=== PATIENT | female | born 1945 | race Caucasian/White ===

== ENCOUNTER 2023-06-17 02:31 | Emergency (ER) | payer MEDICARE, MEDICAID, SELFPAY ==
[2023-06-17 02:48] VITALS: BP 156/73
[2023-06-17 03:00] VITALS: BP 156/84
[2023-06-17 03:30] LABS: % Basophils 0.2 % (0-2); % Immature Granulocytes 0.7 % (0-0.5); % Lymphocytes 10.7 % (20.5-51.1); % Monocytes 10.2 % (1.7-9.3); % Neutrophils 78.2 % (42.2-75.2); Absolute Lymphocytes 0.7 10^3/uL (1.2-3.4); Absolute Monocytes 0.6 10^3/uL (0.1-0.6); Absolute Neutrophils 4.7 10^3/uL (1.4-6.5); Hematocrit 32.6 % (37.0-47.0); Hemoglobin 11.8 g/dL (12.0-16.0); Mean Corp Hgb Conc. 36.2 g/dL (33.0-37.0); Mean Corpuscular Hgb 33.1 pg (27.0-31.0); Mean Corpuscular Volume 91.3 fL (81.0-99.0); Mean Platelet Volume 9.2 fL (7.4-10.4); Nucleated Red Blood Cells % 0 %; Platelet Count 142 10^3/uL (130-400); Red Blood Cell Count 3.57 10^6/uL (4.20-5.40); Red Cell Dist. Width 11.4 % (11.5-14.5); White Blood Cell Count 6.1 10^3/uL (4.8-10.8)
[2023-06-17 03:43] LABS: Blood Urea Nitrogen 23 mg/dl (7-17); Calcium 9.2 mg/dl (8.4-10.2); Carbon Dioxide 28 mmol/L (22-30); Chloride 95 mmol/L (98-107); Glucose 131 mg/dl (70-99); Potassium 4.1 mmol/L (3.5-5.1); Sodium 131 mmol/L (135-145); eGFR > 60.00
[2023-06-17 04:00] VITALS: BP 133/68
--- NOTE | 2023-06-17 04:36 | ED.GENMED ---
History of Present Illness
General
Chief Complaint: Weakness
Source: patient, ambulance crew and retirement (Telephone call to tail trimmer at senior care)
Exam Limitations: dementia (Chronic intellectual/cognitive disability)
Time Seen by Provider: 06/17/23 02:42
Nursing documentation reviewed up to this point in time: agreed with
Travel History
Have you had any contact with someone who has COVID-19?: Unable to Answer
Do you have any symptoms of coronavirus? Fever > 100 degrees, chills, cough, shortness of breath, sore throat, loss of taste or smell, muscle aches, or headache?: Yes
Symptoms:: fever
History of Present Illness
History of Present Illness:
This is a 77-year-old woman who resides at a local senior care. She has history of dementia, cognitive/intellectual delays, seizure disorder, hypertension, hyperlipidemia, UTIs.
She is sent to the ED by retirement staff after patient was found to have low-grade fever of 100.7 �F, mild intermittent dry cough. COVID-19 testing at 1:00 this morning was positive.
She was given a dose of Tylenol for fever at 12 midnight tonight.
Patient is generally wheelchair-bound but does assist with standing and pivoting to toilet etc. Tonight when staff attempted to get her up out of her wheelchair to use the toilet they had marked difficulty doing so where patient could not hold her
own weight. She did not fall, there was no injury. Due to this generalized weakness she was sent to the ED for further evaluation.
She has had no vomiting, no diarrhea.
Recently treated for an asymptomatic UTI noted on surveillance urinalysis, antibiotic completed several days ago.
Prior records reviewed.
Patient was hospitalized early November 2022 for UTI associated with fever, listlessness and poor appetite.
She was then hospitalized November 28 to December 01, 2022 after suffering a mechanical fall, scalp laceration and noted to have acute on chronic hyponatremia.
Past History
Past History
ED Past Medical History: Arrthythmia (Heart block type nonspecific), GERD, Psychiatric (depressive disorder, psychotic disorder), Other (MR, heart block) and Other (Mental disability, )
Social History
Tobacco: Non-smoker
Alcohol: None
Drug: None
Personal: Single
Living: assisted living
Family History
Family History: Unable to obtain
Phy Exam
Physical Exam
Physical Exam:
GENERAL: 77-year-old woman appears her stated age, bright and alert, pleasant, appears in no acute distress. Repeatedly requesting to go home. She is cooperative with exam.
EYE: pupils equal and reactive. anicteric
NECK: Supple, nontender, no meningismus, no significant adenopathy.
ENT: posterior pharynx is clear, oral mucosa is moist. TM clear b/l, nares patent.
CARDIAC: Regular rate and rhythm. no murmur.
LUNGS: Clear breath sounds bilaterally, no acute respiratory distress, no wheezes/rales/rhonchi
ABDOMEN: Soft, nondistended, without focal tenderness, normoactive BS.
NEUROLOGICAL: Alert and oriented x2, no focal neuro deficits. Motor strength is 5/5 bilaterally.
SKIN: Warm and dry, normal color, skin intact. No rash.
MUSCULOSKELETAL: No C/C/E. peripheral pulses are full and equal b/l. No palpable tenderness.
PSYCH: Normal and appropriate interaction.
Course
Orders/Labs/Results
Orders:
Orders
06/17/23 03:12
Basic Metabolic Panel Urgent
Complete Blood Count/With Diff Urgent
Abnormal Lab Results
06/17/23
03:12
RBC 3.57 L 10^6/uL
(4.20-5.40)
Hgb 11.8 L g/dL
(12.0-16.0)
Hct 32.6 L %
(37.0-47.0)
MCH 33.1 H pg
(27.0-31.0)
RDW 11.4 L %
(11.5-14.5)
Absolute Lymphs (auto) 0.7 L 10^3/uL
(1.2-3.4)
Immature Gran % 0.7 H %
(0-0.5)
Neutrophils % 78.2 H %
(42.2-75.2)
Lymphocytes % 10.7 L %
(20.5-51.1)
Monocytes % 10.2 H %
(1.7-9.3)
Sodium 131 L mmol/L
(135-145)
Chloride 95 L mmol/L
(98-107)
BUN 23 H mg/dl
(7-17)
Glucose 131 H mg/dl
(70-99)
06/17/23 03:12
06/17/23 03:12
Vital Signs
Initial and Last Documented VS:
Initial Vital Signs
Temp Pulse Resp BP Pulse Ox
100.3 F 72 16 156/73 93
06/17/23 02:48 06/17/23 02:48 06/17/23 02:48 06/17/23 02:48 06/17/23 02:48
Last Documented Vital Signs
Temp Pulse Resp BP Pulse Ox
98.8 F 65 15 115/81 94
06/17/23 05:00 06/17/23 05:00 06/17/23 05:00 06/17/23 05:00 06/17/23 05:00
MDM/Problems Addressed
Differential Diagnosis Includes:
Patient presents with low-grade fever, generalized weakness, recently tested positive for COVID-19.
Overall bright and alert, appears euvolemic.
Hemodynamically stable.
No focal neurodeficits.
Lungs are clear to auscultation and pulse ox is 95 to 97% on room air. No significant cough appreciated.
She does have history of hyponatremia thus will check BMP to assess for potential recurrent symptomatic hyponatremia.
At this point no indication for imaging.
I suspect her generalized weakness and fatigue is fever, COVID-19 infection related. Overall however nontoxic in appearance.
If labs are acceptable will plan to start Paxlovid for COVID-19 URI and discharged back to assisted living facility.
Chronic conditions affecting care: Psychiatric illness
*Pulse Oximetry
Patient hypoxic: no
*Critical Care Note
Total Time (30-74mins, 75-104mins- exclusive of procedures): Not Applicable
ED Attending Note
-
Portions of this chart may have been created with voice recognition software.� Occasional wrong word or��sound alike� substitutions may have occurred due to the inherent limitations of voice recognition software.
Discharge Plan
Departure
Patient Disposition: Assisted Living
Date of Disposition: 06/17/23
Time of Disposition: 04:36
Patient with high blood pressure during this ER visit?: No
Condition: Good
Covid-19: Confirmed COVID-19
Discharge Problem:
COVID-19
Instructions: COVID-19 (DC)
Prescriptions:
New
Paxlovid 300 mg (150 mg x 2)-100 mg tablets,dose pack
See Rx Instructions .ROUTE .COMPLEX Qty: 30 0RF
Rx Instructions:
take TWO 150 mg tablets of nirmatrelvir with ONE 100 mg tablet of ritonavir twice daily for 5 days
No Action
meloxicam 7.5 mg Tablet
7.5 mg PO DAILY
lorazepam 0.5 mg Tablet
0.5 mg PO HS
divalproex 500 mg Tablet Extended Release 24 Hr
500 mg PO HS
benztropine 1 mg Tablet
1 mg PO HS
docusate sodium [Colace] 100 mg Capsule
100 mg PO BID
omeprazole 20 mg Capsule,Delayed Release(Dr/Ec)
20 mg PO HS
Systane (PF) 0.4-0.3 % Dropperette
1 drp BOTH EYES TID
calcium carbonate-vitamin D3 [Calcium 600 + D(3)] 600 mg-10 mcg (400 unit) Tablet
1 tab PO DAILY@1999
polyethylene glycol 3350 [Miralax] 17 gram Powder In Packet
17 g PO DAILY PRN (Reason: constipation)
dextromethorphan-guaifenesin [Robafen DM Cough-Chest Congest] 10-100 mg/5 mL Syrup
5 ml PO Q4H PRN (Reason: cough)
acetaminophen [Tylenol] 325 mg Tablet
650 mg PO Q4H PRN (Reason: mild pain/fever)
risperidone [Risperdal] 2 mg Tablet
2 mg PO BID@0800,1600
cefuroxime axetil 500 mg tablet
500 mg PO BID Qty: 17 0RF
guar gum Packet
1 tbsp PO DAILY PRN (Reason: constipation)
sertraline 50 mg Tablet
50 mg PO DAILY@1999 Qty: 30 0RF
metoprolol tartrate 25 mg Tablet
25 mg PO BID Qty: 60 0RF
Referrals:
UNKNOWN - PT NOT,INTERVIEWE [Family Provider] -
Interventions
Interventions:
*Risk Screen - Suicide Last Done: 06/17/23 02:48
*General Assessment Last Done: 06/17/23 02:48
*Neglect/Abuse Screening Last Done: 06/17/23 02:48
ED- Fall Risk Assessment Last Done: 06/17/23 02:48
*ED COVID-19 Vaccine History Last Done: 06/17/23 02:48
*Nursing Disposition Last Done: 06/17/23 07:19
ED- Cardiac Assessment Last Done: 06/17/23 03:00
ED- Neurological Assessment Last Done: 06/17/23 03:00
ED- Pulmonary Assessment Last Done: 06/17/23 03:00
Discharge Date and Time
Discharge Date/Time: 06/17/23 07:23
[2023-06-17 05:00] VITALS: BP 115/81
== END 2023-06-17 07:23 ==
LOC: EMR 02:31
PROVIDERS: EMERGENCY PHYSICIAN Emergency Medicine
DX: U07.1 COVID-19 (principal); G40.909 Epilepsy, unspecified, not intractable, without status epilepticus; I45.9 Conduction disorder, unspecified; K21.9 Gastro-esophageal reflux disease without esophagitis; F32.A Depression, unspecified; F03.93 Unspecified dementia, unspecified severity, with mood disturbance; E78.5 Hyperlipidemia, unspecified; Z87.440 Personal history of urinary (tract) infections; Z99.3 Dependence on wheelchair
CPT/HCPCS: 99283; 80048; 85025

== ENCOUNTER → 2023-12-21 14:08 | Outpatient (REF) | payer MEDICARE, MEDICAID, SELFPAY | LOC: RAD 14:08 | PROVIDERS: ATTENDING PHYSICIAN Nurse Practitioner | DX: R10.9 Unspecified abdominal pain (principal) | CPT/HCPCS: 74177; Q9967 ==

== ENCOUNTER 2024-08-08 22:20 | Observation (INO) | payer MEDICARE, MEDICAID, SELFPAY ==
[2024-08-08 17:13] VITALS: BMI 25.5
[2024-08-08 17:14] VITALS: BP 164/87
[2024-08-08 17:37] LABS: % Basophils 0.1 % (0-2); % Eosinophils 2.2 % (0-6); % Immature Granulocytes 0.3 % (0-0.5); % Lymphocytes 31.6 % (20.5-51.1); % Monocytes 8.9 % (1.7-9.3); % Neutrophils 56.9 % (42.2-75.2); Absolute Eosinophils 0.2 10^3/uL (0-0.7); Absolute Lymphocytes 2.1 10^3/uL (1.2-3.4); Absolute Monocytes 0.6 10^3/uL (0.1-0.6); Absolute Neutrophils 3.8 10^3/uL (1.4-6.5); Hematocrit 37.8 % (37.0-47.0); Hemoglobin 13.2 g/dL (12.0-16.0); Mean Corp Hgb Conc. 34.9 g/dL (33.0-37.0); Mean Corpuscular Hgb 33.7 pg (27.0-31.0); Mean Corpuscular Volume 96.4 fL (81.0-99.0); Mean Platelet Volume 9.3 fL (7.4-10.4); Nucleated Red Blood Cells % 0 %; Platelet Count 163 10^3/uL (130-400); Red Blood Cell Count 3.92 10^6/uL (4.20-5.40); Red Cell Dist. Width 11.4 % (11.5-14.5); White Blood Cell Count 6.7 10^3/uL (4.8-10.8)
[2024-08-08 17:44] LABS: Urine Albumin 1+ (Neg - Trace); Urine Bilirubin Negative (Negative); Urine Character Clear (Clear); Urine Color Yellow; Urine Glucose Negative (Negative); Urine Ketone Negative (Negative); Urine Leukocyte Negative (Negative); Urine Nitrite Negative (Negative); Urine Occult Blood Negative (Negative); Urine Urobilinogen Negative (Neg - 1+)
[2024-08-08 17:58] LABS: ALT (SGPT) 11 U/L (0-35); AST (SGOT) 18 U/L (14-36); Alkaline Phosphatase 45 U/L (38-126); Blood Urea Nitrogen 33 mg/dl (7-17); Calcium 9.9 mg/dl (8.4-10.2); Carbon Dioxide 32 mmol/L (22-30); Chloride 96 mmol/L (98-107); Estimated Creatinine Clearance 40 ml/min; Glucose 112 mg/dl (70-99); Potassium 4.7 mmol/L (3.5-5.1); Sodium 135 mmol/L (135-145); Total Bilirubin 0.4 mg/dl (0.2-1.3); Total Protein 6.7 g/dl (6.3-8.2); Urine Mucus Moderate; Urine Squamous Cell 0-2 /LPF (Few); eGFR 56.95
[2024-08-08 17:59] LABS: Urine Bacteria Few (Negative); Urine Red Blood Cell 0-2 /HPF (0-2); Urine White Cell 0-2 /HPF (0-5)
--- NOTE | 2024-08-08 20:15 | ED.GENMED ---
History of Present Illness
General
Chief Complaint: Change in Mental Status
Source: other ([facility] paperwork)
Exam Limitations: other (Patient is unable to speak comprehensively due to tardive dyskinesia)
Time Seen by Provider: 08/08/24 17:36
Nursing documentation reviewed up to this point in time: agreed with
History of Present Illness
History of Present Illness:
The patient is an 79-year-old female the past medical history of cognitive dysfunction as well as schizophrenia who was sent from a longterm due to worsening of her tardive dyskinesia. According to the patient's paperwork, she has been more weak.
Patient was just diagnosed with a urinary tract infection and has been treated with Cipro. The patient is unable to provide any history. She has constant movement of her jaw and mouth. She appears slightly frustrated
Past History
Past History
ED Past Medical History: Arrthythmia (Heart block type nonspecific), GERD, Psychiatric (depressive disorder, psychotic disorder), Other (MR, heart block) and Other (Mental disability, )
ED Past Surgical History: Other
Social History
Tobacco: Non-smoker
Alcohol: None
Drug: None
Personal: Single
Living: other ([facility])
Employment: Other
Family History
Family History: Unable to obtain
Review of Systems
Review of Systems
Allergies reviewed?: Yes
Unable to obtain full review of systems at this time due to: other
Other source history: other ([facility] paperwork)
All Other Systems: Not applicable
Phy Exam
Physical Exam
Physical Exam:
Physical Exam
General: No apparent distress but patient has constant movement of her mouth and jaw
Neck: supple.
Heart: s1/s2 regular rate and rhythm, no murmur. equal radial pulses.
Lungs: no acute respiratory distress. clear bilaterally
Abdomen: normal bowel sounds. not tender. no CVAT
Neuro: alert. Moves all extremities equally. Appears alert, fully awake, tries to speak but speech sounds muffled
Skin: no rash
Psychiatric: well kept. interactive and cooperative
Extremities: no edema. no calf tenderness. negative homans. good distal pulses
Course
Orders/Labs/Results
Orders:
Orders
08/08/24 17:25
Complete Blood Count/With Diff Urgent
Comprehensive Metabolic Panel Urgent
Urinalysis Reflex To Culture Urgent
Date Specimen was Collected: 08/08/24
Time Specimen was Collected: 17:22
Urine Microscopic Reflex Cult Urgent
08/08/24 19:01
CT Abd/pel Without Iv Or Oral Urgent
Comment:
Reason For Exam: UTI
08/08/24 21:11
0.9% Sodium Chloride 1000 ml [Nss] 1,000 ml IV BOLUS
08/08/24 21:37
Admit/Transfer Patient As Directed
Co-Sign Provider:
Level of Care: Observation services
Assign to:: Medical/Surgical
Physician / Group: Htay
Diagnosis: UTI, Constipation
08/08/24 21:38
PRN Pain Medication Management As Directed
May give lesser potent ordered pain med per pt: Yes
preference::
Protocol:: Medication orders for pain may be administered in a
manner that supports deferring to patient preference
when the pt is:
- Requesting an ordered lesser potent pain medication.
Least to most potent pain medications are defined
as: acetaminophen < NSAID < tramadol < opioids
(morphine, oxycodone, hydromorphone).
- Requesting a lesser dose of the same medication IF
ORDERED.
- Requesting a less intrusive route of administration
if both routes are prescribed by the provider (PO <
IV).
08/08/24 21:41
Code Status As Directed
Resuscitation Status: Full Code
08/08/24 22:00
Flush (0.9% Sodium Chloride) [Flush (Nss)] See Dose Instructions IV PER PROTOCOL
Abnormal Lab Results
08/08/24
17:25
RBC 3.92 L 10^6/uL
(4.20-5.40)
MCH 33.7 H pg
(27.0-31.0)
RDW 11.4 L %
(11.5-14.5)
Chloride 96 L mmol/L
(98-107)
Carbon Dioxide 32 H mmol/L
(22-30)
BUN 33 H mg/dl
(7-17)
Glucose 112 H mg/dl
(70-99)
Urine Bacteria (Reflex) Few A
(Negative)
Urine Albumin (Reflex) 1+ A
(Neg - Trace)
08/08/24 17:25
08/08/24 17:25
Vital Signs
Initial and Last Documented VS:
Initial Vital Signs
Pulse Ox
96
08/08/24 17:07
Last Documented Vital Signs
Temp Pulse Resp BP Pulse Ox
98.1 F 65 16 164/87 94
08/08/24 17:14 08/08/24 17:14 08/08/24 17:14 08/08/24 17:14 08/08/24 17:15
MDM/Problems Addressed
Differential Diagnosis Includes:
Acute on chronic tardive dyskinesia from acute UTI, Singh's palsy
MDM/Problems Addressed:
Patient presents with acute on chronic tardive dyskinesia
Chronic conditions affecting care: Psychiatric illness
Acute Exacerbation and/or Progression of Chronic Illness:
Patient has acute exacerbation of chronic tardive dyskinesia
*Pulse Oximetry
Patient hypoxic: no
*EKG
Interpreted by ED Provider?: NA
*Resource Center Teacher Interpretation
Rate: Resource Center Teacher- N/A
*Critical Care Note
Total Time (30-74mins, 75-104mins- exclusive of procedures): Not Applicable
Data Reviewed
Source: other ([facility] paperwork)
Patient Management
Social determinants of health affecting care: Living situation
Discussion with other providers: Hospitalist and Other (Spoke to Dr. Bansal who felt that patient could benefit from a medication called Ingrezza. )
Escalation/DeEscalation of care consider admission/obs:
I called the [facility] longterm where the patient resides. The staff told me that they do not feel comfortable taking the patient back given that her tardive dyskinesia is so bad and she is not eating well. I asked to speak to the nurse
at the facility and she would not be available until tomorrow during daytime.
ED Attending Note
-
Portions of this chart may have been created with voice recognition software.� Occasional wrong word or��sound alike� substitutions may have occurred due to the inherent limitations of voice recognition software.
Discharge Plan
Departure
Patient Disposition: Admit
Date of Disposition: 08/08/24
Time of Disposition: 21:10
Admit to: Med/Surg
Presentation/result/management discussed w/ accepting MD/DO: Hospitalist
Patient with high blood pressure during this ER visit?: Yes
Condition: Good
Discharge Problem:
Acute dehydration, Acute on chronic tardive dyskinesia
Interventions
Interventions:
*Risk Screen - Suicide Last Done: 08/08/24 17:14
*General Assessment Last Done: 08/08/24 17:14
*Neglect/Abuse Screening Last Done: 08/08/24 17:14
*ED- Fall Risk Assessment Last Done: 08/08/24 17:14
*ED COVID-19 Vaccine History Last Done: 08/08/24 17:14
ED- Neurological Assessment Last Done: 08/08/24 21:56
--- NOTE | 2024-08-08 21:21 | HPS.HSE ---
Family Physician
-
Family Physician: Greer Allen
Chief Complaint
-
Worsening Tardive Dyskinesea
History of Present Illness
Patient is an 79 y/o female past medical history of psychotic disorder and intellectually disability who presents with worsening tardive dyskinesia. Patient is unable to provide any additional history. Patient was started on Cipro on August 04
for a urinary tract infection infection. Patient has been noted to have worsening tardive dyskinesia which is now affecting her ability to eat.
Medical History
Past Medical History
Past Medical History: Reports Other
Additional Past Medical History:
Chronic HFpEF
Non-Sustained Ventricular Tachycardia
SIADH
Seizure Disorder
Psychotic Disorder
Intellectual Disability
Dysphagia
Past Surgical History: Reports Other (Unknown)
Social History
Unable to obtain full social history at this time due to: Patient Non-verbal
Family History
Family History: Unable to Obtain
Allergies / Home Medications
Allergies reflects when Allergies were last updated in [facility].
Home Medications with original date entered in [facility]
Allergy/Medication List:
Allergies
Allergy/AdvReac Type Severity Reaction Status Date / Time
No Known Allergies Allergy Unverified 06/17/23 02:47
Home Medications
acetaminophen 325 mg tablet (Tylenol) 650 mg PO Q4HPRN PRN mild pain/fever 11/07/21
benztropine 1 mg tablet 1 mg PO BID Mental Health/Anxiety 11/07/21
calcium 600 mg (as carbonate)-vitamin D3 10 mcg (400 unit) tablet (Calcium 600 + D(3)) 1 tab PO QPM Supplement 11/07/21
dextromethorphan-guaifenesin 10 mg-100 mg/5 mL oral syrup (Robafen DM Cough-Chest Congestion) 5 ml PO Q4HPRN PRN cough 11/07/21
divalproex 500 mg tablet,extended release 24 hr 500 mg PO HS Mental Health/Anxiety 11/07/21
docusate sodium 100 mg capsule (Colace) 100 mg PO BID Constipation 11/07/21
lorazepam 0.5 mg tablet 0.5 mg PO HS Sleep 11/07/21
meloxicam 7.5 mg tablet 7.5 mg PO DAILY Anti-Inflammatory 11/07/21
omeprazole 20 mg capsule,delayed release 20 mg PO DAILY Gastrointestinal Issue 11/07/21
polyethylene glycol 3350 17 gram oral powder packet (Miralax) 17 g PO Q48H@1600 11/07/21
risperidone 2 mg tablet (Risperdal) 3 mg PO HS Mental Health/Anxiety 11/19/22
metoprolol tartrate 25 mg tablet 25 mg PO BID #60 tabs 11/29/22
ciprofloxacin HCl 250 mg tablet 250 mg PO BID 08/08/24
lidocaine 4 % topical patch 1 patch topical DAILY right lower leg 08/08/24
sertraline 50 mg tablet 100 mg PO HS 08/08/24
Review of Systems
-
Unable to obtain full review of systems at this time due to: Patient Non-verbal
Physical Exam
Vital Signs
Vital Signs
Temp Pulse Resp BP Pulse Ox
98.1 F 65 16 164/87 94
08/08/24 17:14 08/08/24 17:14 08/08/24 17:14 08/08/24 17:14 08/08/24 17:15
Physical Exam
General: Well Developed, Well Nourished and Other (Tearful)
HEENT: NormoCephalic and Anicteric
Respiratory: Clear and Non Labored Respirations
Cardiac: S1/S2 and Regular Rhythm
GI: Soft and Non Tender
Genito-urinary: Clear Urine
Musculoskeletal: No Clubbing and No Cyanosis
Skin: Warm and Dry
Neuro: Awake, Alert and Other (Significant tardive dyskinesia; Able to follow some commands)
Psych: Anxious
Laboratory Results
-
08/08/24 17:25
08/08/24 17:25
Laboratory Results
Total Bilirubin 0.4 mg/dl (0.2-1.3) 08/08/24 17:25
AST 18 U/L (14-36) 08/08/24 17:25
ALT 11 U/L (0-35) 08/08/24 17:25
Alkaline Phosphatase 45 U/L (38-126) 08/08/24 17:25
Data Reviewed
-
Lab Data: Labs Reviewed by me
Old Records: Reviewed
Impression/Plan
-
Worsening Tardive Dyskinesia, likely exacerbated by Cipro
-Stop Cipro
-Consult Psych
Urinary Tract Infection
-Urinalysis appears clean compared to prior, but CT scan still with evidence of cystitis
-Will attempt to obtain urine culture from PCP
-Transition to ceftriaxone
Constipation
-Give Dulcolax suppository tonight
-Add Senna-S BID
-Continue Miralax
SIADH
-Continue fluid restriction
Seizure Disorder
-Continue Depakote
Psychotic Disorder
-Continue Cogentin, lorazepam, risperidone and sertraline
Dysphagia
-Continue IDDSI 5 (Mechanical soft per custodial paperwork)
DVT proph: Lovenox
Code Status: Full Code
[2024-08-08] MEDS: NSS 1000 IV (21:29)
--- NOTE | 2024-08-08 21:47 | W.PN.UPDATE ---
Update Note
Progress Note Update
I could not get any information from the patient as signifcant developmental delay
Information gathered by chart review and speaking with the ER staff.
This note serves as an addendum to the H&P by global creative chairman JACKIE
Jolie MAYEN
HPI
79F WC Bound from senior care, HX schizophrenia , significant for developmental delay and mood disorder on multiple psychotropic medications, HX tardive dyskinesia , seen at ER:
- family concerned with increased tardive dyskinesia
- UTI ( 08/04/24 ) on D4 of PO Cipro
PHX; see above
Reviewed VS:
Vital Signs
Temp Pulse Resp BP Pulse Ox
98.1 F 65 16 164/87 94
08/08/24 17:14 08/08/24 17:14 08/08/24 17:14 08/08/24 17:14 08/08/24 17:15
PE
Gen: alert , follow simple commands
HEENT: involuntary lip smacking
Neck: supple
Lungs:CTA
Cor: RRR S1 S2
Abdomen: soft benign
MASTER BARBER: alert , awake
MS: no edema
Psych: limited due to development delay
Labs
06/17/23 08/08/24
03:12 17:25
WBC 6.7
Hgb 11.8 L 13.2
Plt Count 163
Sodium 135
Chloride 96 L
Carbon Dioxide 32 H
BUN 33 H
Creatinine 1.0
eGFR > 60.00 56.95
Urine WBC (Reflex) 0-2
CT Abd/pel Without Iv Or Oral
1. Moderate diffuse urinary bladder wall thickening consistent with cystitis.
2. Moderate chronic bilateral renal disease.
3. Moderate scarring in the lateral cortex of the left kidney.
4. Severe diverticulosis in the sigmoid colon.
5. Large amount of fecal material in the proximal colon and rectum.
6. Severe tortuosity of the abdominal aorta.
7. Moderate-sized sliding-type hiatal hernia.
8. Mild cardiomegaly.
9. Chronic vertebral body endplate osteoporotic insufficiency fractures of T12, L1, and L2.
10. Severe discogenic degenerative disease at L2/L3 and L4/L5.
Last hospitalist admission: DATE OF ADMISSION: 11/19/2022 - DATE OF DISCHARGE: 11/24/2022
DISCHARGE DIAGNOSES:
1. Escherichia coli bacteremia urinary tract infection with left pyelonephrititis.
2. Congestive heart failure with preserved ejection fraction.
ASSESSMENT & PLAN
CT suggestive of cystitis
Currently on D3/4 of PO Cipro
Current UA is NEG
Afebrile and nl WCC
HX Pyelonephritis E. coli pansensitive November 24, 2022
HX E. coli bacteremia November 24, 2022
- IV NS
- switch to IV CFTX
- Observe weakness and tardive dyskinesia
Worsening tardive dyskinesia - suspect multifactorial such as UTI, Cipro, hi Valproate level, fecal impaction
HX schizophrenia , significant for developmental delay and mood disorder on multiple psychotropic medications
HX tardive dyskinesia on Benztropine
WC Bound and 2 person lift at baseline
- check valproate level
- Observe off Cipro
- Tx UTI
- correct dehydration with IVF
- BW regime
- Observe TD
HX Chronic diastolic CHF
HX NSTVT
TTE 11/21/22: LVEF 60-65%, by visual assessment.Normal right ventricular size and function. Mild aortic regurgitation.
- on metoprolol tartrate
HX depression and psychosis
Lives in skilled nursing
- c/w Depakote and Zoloft
- check Depakote level
Nl LFts
HX abnormal LFTs
Prior CT abdomen showing partially contracted gallbladder liver was unremarkable
-Continue to follow as outpatient on discharge
Chronic anemia normocytic
- Monitor hemoglobin
DVT Px: LMWH
Code: full code
OBS MS
[2024-08-09 00:09] VITALS: BP 149/100
[2024-08-09 00:10] VITALS: BMI 23.1
[2024-08-09] MEDS: ATIVAN 0.5 MG PO ×2 (00:52→21:06)
[2024-08-09] MEDS: DEPAKOTE ER (24 HR RELEASE) 500 MG PO ×2 (00:52→21:05)
[2024-08-09] MEDS: RISPERDAL 3 MG PO (00:52)
[2024-08-09] MEDS: DULCOLAX 10 MG RECTAL (00:52)
[2024-08-09] MEDS: ROCEPHIN 1000 MG IV ×2 (00:52→23:48)
[2024-08-09] MEDS: ZOLOFT 100 MG PO ×2 (00:52→21:06)
[2024-08-09] MEDS: STERILE WATER FOR INJECTION 10 ML IV ×2 (00:53→23:48)
[2024-08-09 06:00] VITALS: BMI 22.9
[2024-08-09 06:28] LABS: Hematocrit 31.9 % (37.0-47.0); Mean Corp Hgb Conc. 34.5 g/dL (33.0-37.0); Mean Corpuscular Hgb 32.9 pg (27.0-31.0); Mean Corpuscular Volume 95.5 fL (81.0-99.0); Mean Platelet Volume 9.1 fL (7.4-10.4); Platelet Count 135 10^3/uL (130-400); Red Blood Cell Count 3.34 10^6/uL (4.20-5.40); Red Cell Dist. Width 11.2 % (11.5-14.5); White Blood Cell Count 6.8 10^3/uL (4.8-10.8)
[2024-08-09 06:50] LABS: Blood Urea Nitrogen 22 mg/dl (7-17); Carbon Dioxide 29 mmol/L (22-30); Chloride 102 mmol/L (98-107); Estimated Creatinine Clearance 62 ml/min; Glucose 102 mg/dl (70-99); Magnesium 1.9 mg/dl (1.6-2.3); Potassium 4.6 mmol/L (3.5-5.1); Sodium 139 mmol/L (135-145); eGFR > 60.00
[2024-08-09 07:00] VITALS: BP 111/68
[2024-08-09 07:21] VITALS: BMI 22.9
[2024-08-09 07:56] LABS: Depakane 38.6 ug/ml (50.0-120.0)
[2024-08-09] MEDS: MOBIC 7.5 MG PO (08:47)
[2024-08-09] MEDS: SENOKOT-S 2 TABLET PO ×2 (08:47→20:28)
[2024-08-09] MEDS: LIDOCAINE 4% PATCH 1 PATCH TOPICAL (08:47)
[2024-08-09] MEDS: PROTONIX 40 MG PO (08:48)
[2024-08-09] MEDS: LOPRESSOR 25 MG PO ×2 (08:48→20:28)
[2024-08-09] MEDS: COGENTIN 1 MG PO ×3 (08:48→21:04)
--- NOTE | 2024-08-09 09:46 | W.PN.HOSP.TC ---
Today's Communication/Plan
-
Assessment / Plan
Assessment / Plan
NAD, not verbalizing
Scleral Anicteric
MMM, drooling while she sleeps
No JVD
CTABL
RRR, S1/S2
Soft, NT, ND, BS+
Warm, Dry
AA, able to squeeze my finger however does not really follow commands to assess for pronator drift or leg drift
Calm
Tardive dyskinesia
Acute on chronic
It is believed that this was related to/recommended by ciprofloxacin
Ciprofloxacin has since been discontinued
Appears to be improving however did not see movements on initial admission
Psychiatry consulted
UTI
Follow-up urine culture
On Rocephin
SIADH
Continue fluid restriction
Seizure disorder
Continue Depakote
Psychotic disorder
Continue Cogentin lorazepam risperidone sertraline
Dysphagia
Continue IDDSI 5
Anticipated Discharge: 24 - 48 hours
Subjective/Interval History
-
Date of Service: August 09, 2024
Seen and examined. Was sleeping. I did wake her up. She does have some puckering/pursing vs bonbon sign
Objective Data
-
Labs:
Laboratory Results
08/09/24
06:10
WBC 6.8
Hgb 11.0 L
Hct 31.9 L
Plt Count 135
Sodium 139
Potassium 4.6
Chloride 102
Carbon Dioxide 29
BUN 22 H
Creatinine 0.7
Glucose 102 H
Calcium 9.0
Vital Signs:
Vital Signs
Temp Pulse Resp BP Pulse Ox
98.2 F 66 18 111/68 93
08/09/24 07:00 08/09/24 07:00 08/09/24 07:00 08/09/24 07:00 08/09/24 07:00
--- NOTE | 2024-08-09 10:13 | PTCARENOTE ---
Assumed care of pt from previous nurse. Pt in NAD, appears comfortable sleeping in bed. Verbally arousable and able to nod head appropriately. Call choi within reach, plan of care ongoing.
--- NOTE | 2024-08-09 10:27 | CON.MD ---
Consultation - Medical
-
patient seen chart reviewed. spoke with nursing. 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 the patient is an 79 year old woman w hx schizophrenia reportedly. current meds risperdal 3 mg q day cogentin one mg bid. depakote 500 mg q hs sertraline
100 mg q day. she was reportedly referred bc of bucco facial movements which were thought perhaps to be impairing her food intake. she was described as weak. the patient could give no hx, i called [facility] to talk to staff there. left two messages. i
finally reached a person and he said 'the nurses are not here on weekend' but he would try to get in touch with someone. the patient is oriented to person and 'hospital'
past psych hx reportedly schizophrenia
medical chart notes arrhyrthmia gerd depakote level is low at 30 abd pelvic cat shows a number of findings not acute but likely to cause discomfort including likely bladder changes c.w cystitis (patient recently rx for uti w cipro current ua is
negative ) chronic renal changes diverticulosis much fecal matyerial vertevral fx osteoporotic cardiomegaly disc disease.
fh unknown
substance abuse not
social resides in [place]
mse lethargic soft spoken barely talks oriented to person and 'hospital' no overt psychosis paucity of thought and expression mood withdrawn affect constricted not suicidal not doubt active hallucinations cognition impaired insight judgment
lacking
dx tardive dyskinesia dementia schizophrenia by hx
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 this did NOT develop in the last few days. it is likely secondary to a life time of antipsychotics. there are meds for td including austedo and ingrezza neither of which is formulary here and they likely require a prior
auth. the only antipsychotic which does not cause td is clozaril which is complicated to use. it is NOT clear to me that patient continues to need antipsychotics .sometimes when people get to this age there are only left he negative symptoms of
schiz but the medications are carried forward. her agency needs to have her reassessed by psych as to whether she needs to continue risperdal which is the offending agent. when you cut it back for a while td may increase and frankly it may never
decrease or go away. ingrezza may help but it too has ill effects (parkinsonian sx) and needs to be monitored. cogentin does NOT help with td although it helps with eps which patient does have (cogwheeling at wrist). will cut risperdal to 2 mg.
in the absence of medical problems requiring treatment patient could be dc back to [place] in my opinion to follow up for the td as well as tapering of risperdal if possible. will check in on her tomorrow if she remains here.
--- NOTE | 2024-08-09 12:16 | CM ---
manager transition reviewed patient's chart and met with patient and patient was admitted under OBS, PAN letter provided to patient not signed, PAN letter discussed with [facility], [place] steam [employer] records clerk at [facility], patient was admitted from [facility], patient is w/c level and assist of one, per staff the last few weeks patient is assist of 2, outsole caser will need to discuss discharge planning with nursing and they will be in on Sunday, contact Deedee Kinney [phone].
PCP: Dr. Greer Allen
Pharmacy: [facility]
Plan; Patient may benefit from PT/OT to assist with discharge planning.
[2024-08-09 15:00] VITALS: BP 122/71
[2024-08-09] MEDS: MIRALAX 17 GRAMS PO (15:11)
[2024-08-09 15:29] VITALS: BMI 22.9
[2024-08-09] MEDS: LOVENOX 40 MG SC (17:07)
[2024-08-09] MEDS: OSCAL 500 + D 500 MG PO (17:08)
[2024-08-09] MEDS: RISPERDAL 2 MG PO (21:12)
[2024-08-09 23:07] VITALS: BP 143/93
[2024-08-10 06:00] VITALS: BMI 22.3
[2024-08-10 07:00] VITALS: BP 154/84
[2024-08-10] MEDS: LIDOCAINE 4% PATCH 1 PATCH TOPICAL (08:06)
[2024-08-10] MEDS: SENOKOT-S 2 TABLET PO ×2 (08:07→19:16)
[2024-08-10] MEDS: COGENTIN 1 MG PO (08:07)
[2024-08-10] MEDS: PROTONIX 40 MG PO (08:07)
[2024-08-10] MEDS: MOBIC 7.5 MG PO (08:07)
[2024-08-10] MEDS: LOPRESSOR 25 MG PO ×2 (08:07→19:15)
--- NOTE | 2024-08-10 08:47 | PTOTSP ---
SPEECH THERAPY SWALLOW EVALUATION:
Patient exhibits clinical signs of oropharyngeal dysphagia, likely chronic 2/2 tardive dyskinesia. Recommend IDDSI Level 4 Puree diet, thin liquids via cup sip. Medications crushed in puree. Aspiration precautions: 1:1 assistance/supervision;
Upright positioning; Check for pocketing; Ensure patient swallows prior to next bite; Slow rate; Small sips; Monitor for signs of aspiration; No straw. Oral care 3x/day. ST to follow, assess diet tolerance and modify as appropriate, and determine
indication for instrumental assessment of swallowing as appropriate.
RECOMMEND:
1) IDDSI Level 4 Puree diet, thin liquids via cup sip
2) Medications crushed in puree
3) Aspiration precautions: 1:1 assistance/supervision; Upright positioning; Check for pocketing; Ensure patient swallows prior to next bite; Slow rate; Small sips; Monitor for signs of aspiration; No straw
4) Oral care 3x/day
5) ST to follow, determine indication for instrumental assessment of swallowing as appropriate
--- NOTE | 2024-08-10 09:22 | W.PN.HOSP.TC ---
Today's Communication/Plan
-
PT OT
Risperidone dose decreased
Case management updated about ready for discharge however have relayed to me that there is not enough nursing staff at facility to take back and will be a discharge back on Sunday at the earliest
Assessment / Plan
Assessment / Plan
NAD, not verbalizing
Scleral Anicteric
MMM
No JVD
CTABL
RRR, S1/S2
Soft, NT, ND, BS+
Warm, Dry
Awakes to name, able to squeeze my finger however does not really follow commands to assess for pronator drift or leg drift
Calm
Tardive dyskinesia
Acute on chronic
It is believed that this was related to/recommended by ciprofloxacin
Ciprofloxacin has since been discontinued
Appears to be improving however did not see movements on initial admission
Psychiatry consulted
UTI
Unfortunately no urine culture was obtained he has been on Rocephin. Will continue and likely able to discontinue on 08/11/2024
SIADH
Continue fluid restriction
Seizure disorder
Continue Depakote
Psychotic disorder
Continue Cogentin lorazepam risperidone sertraline
Psychiatry reduced risperidone dosing
Dysphagia
Continue IDDSI 4
PT OT
At this time I have cleared her for discharge however unable to return to facility as there is not enough nursing support today.
Plan for discharge hopefully tomorrow if there is no change medical status
Anticipated Discharge: Within 24 hours
Subjective/Interval History
-
Date of Service: August 10, 2024
Seen and examined. No acute overnight events.
Minimal TD symptoms at this time when I woke her up from her sleep
I told her that her breakfast was started and gave her a spoon of pancake with syrup that was pur�ed. She said that this that she needs assistance feeding herself
Objective Data
-
Vital Signs:
Vital Signs
Temp Pulse Resp BP Pulse Ox
98.1 F 57 16 154/84 94
08/10/24 07:00 08/10/24 07:00 08/10/24 07:00 08/10/24 07:00 08/10/24 07:00
I&O
08/09/24 08/10/24 08/11/24
06:59 06:59 06:59
Intake Total 120 / 120
Balance 120 / 120
--- NOTE | 2024-08-10 11:45 | W.PN.UPDATE ---
Update Note
Progress Note Update
patient seen chart reviewed. discussed w nursing. patient is very calm and cooperative. she appeared very peaceful this am. eyes were open lying seemingly comfortably in bed. she does not really engage in any prolonged discussion. offered no
complaints when i asked her if anything hurt or if i could do anything for her. asked if she needed to eat...she had applesauce and oj on her tray but did not want to eat any more. would continue w current meds . my suggestions upon dc for patient
are yesterday's note. would try to get ingrezza or austedo and try to continue to taper risperdal . would cut to one mg in one week or so if no issues. will cut back on cogentin to one half mg bid. once she is very low on risperdal (one mg) would
further cut cogentin and dc. psych will sign off as patient likely leaving tomorrow
[2024-08-10 15:00] VITALS: BP 132/83
[2024-08-10] MEDS: LOVENOX 40 MG SC (17:04)
[2024-08-10] MEDS: OSCAL 500 + D 500 MG PO (17:04)
[2024-08-10] MEDS: COGENTIN 0.5 MG PO (19:15)
[2024-08-10] MEDS: ATIVAN 0.5 MG PO (21:51)
[2024-08-10] MEDS: RISPERDAL 2 MG PO (21:52)
[2024-08-10] MEDS: DEPAKOTE ER (24 HR RELEASE) 500 MG PO (21:54)
[2024-08-10] MEDS: ZOLOFT 100 MG PO (21:54)
[2024-08-10 23:17] VITALS: BP 139/78
[2024-08-10] MEDS: ROCEPHIN 1000 MG IV (23:38)
[2024-08-10] MEDS: STERILE WATER FOR INJECTION 10 ML IV (23:39)
[2024-08-11 06:00] VITALS: BMI 22.0
[2024-08-11 07:00] VITALS: BP 145/90
[2024-08-11] MEDS: COGENTIN 0.5 MG PO ×2 (07:38→19:30)
[2024-08-11] MEDS: MOBIC 7.5 MG PO (07:38)
[2024-08-11] MEDS: LOPRESSOR 25 MG PO ×2 (07:38→19:30)
[2024-08-11] MEDS: PROTONIX 40 MG PO (07:38)
[2024-08-11] MEDS: SENOKOT-S 2 TABLET PO ×2 (07:38→19:29)
[2024-08-11] MEDS: LIDOCAINE 4% PATCH 1 PATCH TOPICAL (07:39)
--- NOTE | 2024-08-11 11:08 | W.PN.HOSP.TC ---
Today's Communication/Plan
-
Discharge
Assessment / Plan
Assessment / Plan
Gen-awake, alert, NAD, minimal verbalization
HEENT-NC, AT, anicteric, clear oral mm
Neck-supple
CV-reg, no M, +S1/S2
Lungs-clear B/L
Abd-soft, NT, ND
Ext-no edema
Musculoskeletal-no cyanosis, clubbing
Skin-warm and dry
Neuro-grossly non-focal
Psych-calm, cooperative
Tardive dyskinesia
Acute on chronic
It is believed that this was related to/recommended by ciprofloxacin
Ciprofloxacin has since been discontinued
Appears to be improving however did not see movements on initial admission
Psychiatry consulted
UTI
Unfortunately no urine culture was obtained he has been on Rocephin. Stop ceftriaxone as she has received 3 doses. No stones noted on CT scan.
SIADH
Continue fluid restriction. Sodium normal.
Seizure disorder
Continue Depakote
Schizophrenia
Continue Cogentin lorazepam risperidone sertraline
Psychiatry reduced risperidone dosing and recommends continue to taper.
Outpatient psychiatry follow-up.
Dysphagia
Continue IDDSI 4
Dispo -medically stable for discharge. Discussed with case management. Outpatient follow-up.
Anticipated Discharge: Today
Subjective/Interval History
-
Date of Service: August 11, 2024
Patient seen and examined. No complaints.
Objective Data
-
Vital Signs:
Vital Signs
Temp Pulse Resp BP Pulse Ox
97.9 F 60 16 145/90 95
08/11/24 07:00 08/11/24 07:00 08/11/24 07:00 08/11/24 07:38 08/11/24 07:00
I&O
08/10/24 08/11/24 08/12/24
06:59 06:59 06:59
Intake Total 120 / 120 720 / 720
Balance 120 / 120 720 / 720
Review of Systems
-
History Source: Patient
All other systems: Reviewed and negative
--- NOTE | 2024-08-11 11:14 | W.DS.TRANS ---
DC Summary - [employer] Support Equipment [employer]airer
-
Discharge Instructions:
Discharge Diagnosis/Procedures UTI
Tardive dyskinesia
Diet As tolerated
Additional Diets RECOMMEND:
1) IDDSI Level 4 Puree diet, thin liquids via
cup sip
2) Medications crushed in puree
3) Aspiration precautions: 1:1 assistance/
supervision; Upright positioning; Check for
pocketing; Ensure patient swallows prior to next
bite; Slow rate; Small sips; Monitor for signs
of aspiration; No straw
4) Oral care 3x/day
5) ST to follow, determine indication for
instrumental assessment of swallowing as
appropriate
Activity As tolerated
Driving Restrictions No driving
Bathing Restrictions None
Instructions:
Stand-Alone Forms:
Changes to Home Medications: Yes
Discharge Medications:
DC Medications w/original date entered in [employer]
acetaminophen 325 mg tablet (Tylenol) 650 mg PO Q4HPRN PRN mild pain/fever 11/07/21
benztropine 1 mg tablet 1 mg PO BID Mental Health/Anxiety 11/07/21
calcium 600 mg (as carbonate)-vitamin D3 10 mcg (400 unit) tablet (Calcium 600 + D(3)) 1 tab PO QPM Supplement 11/07/21
dextromethorphan-guaifenesin 10 mg-100 mg/5 mL oral syrup (Robafen DM Cough-Chest Congestion) 5 ml PO Q4HPRN PRN cough 11/07/21
divalproex 500 mg tablet,extended release 24 hr 500 mg PO HS Mental Health/Anxiety 11/07/21
docusate sodium 100 mg capsule (Colace) 100 mg PO BID Constipation 11/07/21
lorazepam 0.5 mg tablet 0.5 mg PO HS Sleep 11/07/21
meloxicam 7.5 mg tablet 7.5 mg PO DAILY Anti-Inflammatory 11/07/21
omeprazole 20 mg capsule,delayed release 20 mg PO DAILY Gastrointestinal Issue 11/07/21
polyethylene glycol 3350 17 gram oral powder packet (Miralax) 17 g PO Q48H@1600 11/07/21
metoprolol tartrate 25 mg tablet 25 mg PO BID #60 tabs 11/29/22
lidocaine 4 % topical patch 1 patch topical DAILY right lower leg 08/08/24
sertraline 50 mg tablet 100 mg PO HS 08/08/24
risperidone 2 mg tablet 2 mg PO HS #30 tabs 08/10/24
Home Medication Changes
Risperdal dose reduced to 2 mg at bedtime.
Pending Results: No
[2024-08-11 15:00] VITALS: BP 140/76
--- NOTE | 2024-08-11 15:04 | CM ---
Addendum entered by Alice Harris 08/11/24 16:12:
Spoke w/ Deedee, will plan to transport patient tomorrow morning. Requesting 10 am transport time
Transport forms on chart
[facility]
Report: [phone] ASK FOR NURSE

Plan: D/c tomorrow morning. Ambulance transport
Original Note:
Spoke w/ hospitalist, patient medically stable for d/c. Patient was due to d/c Sunday, however, [facility] lacked staffing and couldn't accept patient back.
CM spoke w/ Deedee/nurse from [facility], briefly about d/c today, Deedee requested update and will call nurse station
Nurse spoke w/ Deedee w/ updates earlier this morning
Attempted call again to Deedee to arrange d/c and transport, left message
Patient will need ambulance transport
Plan: Return to [facility]
[2024-08-11] MEDS: MIRALAX 17 GRAMS PO (15:45)
[2024-08-11] MEDS: OSCAL 500 + D 500 MG PO (17:28)
[2024-08-11] MEDS: LOVENOX 40 MG SC (17:28)
[2024-08-11] MEDS: DEPAKOTE ER (24 HR RELEASE) 500 MG PO (21:03)
[2024-08-11] MEDS: ATIVAN 0.5 MG PO (21:03)
[2024-08-11] MEDS: ZOLOFT 100 MG PO (21:04)
[2024-08-11] MEDS: RISPERDAL 2 MG PO (21:04)
[2024-08-11 23:00] VITALS: BP 141/82
[2024-08-12 06:00] VITALS: BMI 21.5
[2024-08-12 07:45] VITALS: BP 120/65
[2024-08-12] MEDS: PROTONIX 40 MG PO (08:11)
[2024-08-12] MEDS: LIDOCAINE 4% PATCH 1 PATCH TOPICAL (08:11)
[2024-08-12] MEDS: LOPRESSOR 25 MG PO (08:11)
[2024-08-12] MEDS: MOBIC 7.5 MG PO (08:12)
[2024-08-12] MEDS: COGENTIN 0.5 MG PO (08:12)
[2024-08-12] MEDS: SENOKOT-S 2 TABLET PO (08:12)
--- NOTE | 2024-08-12 09:49 | CM ---
Patient has been cleared for discharge today will check on ambulance transport
[facility]
Report: [phone] ASK FOR NURSE

Plan; transfer back to [facility] today.
--- NOTE | 2024-08-12 10:08 | W.PN.HOSP.TC ---
Today's Communication/Plan
-
Discharge
Assessment / Plan
Assessment / Plan
Gen-awake, alert, NAD, minimal verbalization
HEENT-NC, AT, anicteric, clear oral mm
Neck-supple
CV-reg, no M, +S1/S2
Lungs-clear B/L
Abd-soft, NT, ND
Ext-no edema
Musculoskeletal-no cyanosis, clubbing
Skin-warm and dry
Neuro-grossly non-focal
Psych-calm, cooperative
Tardive dyskinesia
Acute on chronic
It is believed that this was related to/recommended by ciprofloxacin
Ciprofloxacin has since been discontinued
Appears to be improving however did not see movements on initial admission
Psychiatry consulted
UTI
Unfortunately no urine culture was obtained he has been on Rocephin. Completed antibiotics. No stones noted on CT scan.
SIADH
Continue fluid restriction. Sodium normal.
Seizure disorder
Continue Depakote
Schizophrenia
Continue Cogentin lorazepam risperidone sertraline
Psychiatry reduced risperidone dosing and recommends continue to taper.
Outpatient psychiatry follow-up.
Dysphagia
Continue IDDSI 4
Dispo -medically stable for discharge. Discussed with case management. Outpatient follow-up.
Anticipated Discharge: Today
Subjective/Interval History
-
Date of Service: August 12, 2024
Patient seen and examined. No complaints.
Objective Data
-
Vital Signs:
Vital Signs
Temp Pulse Resp BP Pulse Ox
97.7 F 61 18 120/65 95
08/12/24 07:45 08/12/24 07:45 08/12/24 07:45 08/12/24 07:45 08/12/24 07:45
I&O
08/11/24 08/12/24 08/13/24
06:59 06:59 06:59
Intake Total 720 / 720 840 / 840
Balance 720 / 720 840 / 840
Review of Systems
-
History Source: Patient
All other systems: Reviewed and negative
--- NOTE | 2024-08-12 10:23 | W.DS.TRANS ---
DC Summary - [employer]
-
Discharge Instructions:
Discharge Diagnosis/Procedures UTI
Tardive dyskinesia
Diet As tolerated
Additional Diets RECOMMEND:
1) IDDSI Level 4 Puree diet, thin liquids via
cup sip
2) Medications crushed in puree
3) Aspiration precautions: 1:1 assistance/
supervision; Upright positioning; Check for
pocketing; Ensure patient swallows prior to next
bite; Slow rate; Small sips; Monitor for signs
of aspiration; No straw
4) Oral care 3x/day
5) ST to follow, determine indication for
instrumental assessment of swallowing as
appropriate
Activity As tolerated
Driving Restrictions No driving
Bathing Restrictions None
Instructions:
Stand-Alone Forms:
Changes to Home Medications: Yes
Discharge Medications:
DC Medications w/original date entered in [employer]
acetaminophen 325 mg tablet (Tylenol) 650 mg PO Q4HPRN PRN mild pain/fever 11/07/21
calcium 600 mg (as carbonate)-vitamin D3 10 mcg (400 unit) tablet (Calcium 600 + D(3)) 1 tab PO QPM Supplement 11/07/21
dextromethorphan-guaifenesin 10 mg-100 mg/5 mL oral syrup (Robafen DM Cough-Chest Congestion) 5 ml PO Q4HPRN PRN cough 11/07/21
divalproex 500 mg tablet,extended release 24 hr 500 mg PO HS Mental Health/Anxiety 11/07/21
docusate sodium 100 mg capsule (Colace) 100 mg PO BID Constipation 11/07/21
lorazepam 0.5 mg tablet 0.5 mg PO HS Sleep 11/07/21
meloxicam 7.5 mg tablet 7.5 mg PO DAILY Anti-Inflammatory 11/07/21
omeprazole 20 mg capsule,delayed release 20 mg PO DAILY Gastrointestinal Issue 11/07/21
polyethylene glycol 3350 17 gram oral powder packet (Miralax) 17 g PO Q48H@1600 07/25/22
metoprolol tartrate 25 mg tablet 25 mg PO BID #60 tabs 11/29/22
lidocaine 4 % topical patch 1 patch topical DAILY right lower leg 08/08/24
sertraline 50 mg tablet 100 mg PO HS 08/08/24
risperidone 2 mg tablet 2 mg PO HS #30 tabs 08/10/24
benztropine 0.5 mg tablet 0.5 mg PO BID #60 tabs 08/12/24
Home Medication Changes
Cogentin dose reduced.
Pending Results: No
== END 2024-08-12 13:02 ==
LOC: 4 WEST ACU 22:20
PROVIDERS: Physician Assistant Medical; ADMITTING PHYSICIAN Internal Medicine; ATTENDING PHYSICIAN Hospitalist; CONSULT PHYSICIAN Psychiatry & Neurology Psychiatry; EMERGENCY PHYSICIAN Emergency Medicine; FAMILY PHYSICIAN Internal Medicine
DX: R41.82 Altered mental status, unspecified (principal); G24.01 Drug induced subacute dyskinesia; F20.9 Schizophrenia, unspecified; R53.1 Weakness; E22.2 Syndrome of inappropriate secretion of antidiuretic hormone; E86.0 Dehydration; R13.10 Dysphagia, unspecified; T36.8X5A Adverse effect of other systemic antibiotics, initial encounter; Y92.129 Unspecified place in nursing home as the place of occurrence of the external cause; K21.9 Gastro-esophageal reflux disease without esophagitis; F32.A Depression, unspecified; R62.50 Unspecified lack of expected normal physiological development in childhood; N39.0 Urinary tract infection, site not specified; K59.00 Constipation, unspecified; I50.32 Chronic diastolic (congestive) heart failure; D64.9 Anemia, unspecified; R79.89 Other specified abnormal findings of blood chemistry; G40.909 Epilepsy, unspecified, not intractable, without status epilepticus; F79 Unspecified intellectual disabilities; K57.30 Diverticulosis of large intestine without perforation or abscess without bleeding; Q25.46 Tortuous aortic arch; K44.9 Diaphragmatic hernia without obstruction or gangrene; M80.08XA Age-related osteoporosis with current pathological fracture, vertebra(e), initial encounter for fracture; M51.369 Other intervertebral disc degeneration, lumbar region without mention of lumbar back pain or lower extremity pain; N28.9 Disorder of kidney and ureter, unspecified; Z87.440 Personal history of urinary (tract) infections; Z99.3 Dependence on wheelchair; Z79.1 Long term (current) use of non-steroidal anti-inflammatories (NSAID)
CPT/HCPCS: 74176; 80048; 80053; 80164; 81003; 81015; 83735; 85025; 85027; 87070; 92610; 97162; 97166; 99284; G0378

== ENCOUNTER → 2024-08-22 11:00 | Outpatient (REF) | payer MEDICARE, MEDICAID, SELFPAY | LOC: WDC 11:00 | PROVIDERS: ATTENDING PHYSICIAN Nurse Practitioner | DX: Z12.31 Encounter for screening mammogram for malignant neoplasm of breast (principal) | CPT/HCPCS: 77063; 77067 ==

== ENCOUNTER → 2024-11-06 10:06 | Outpatient (REF) | payer MEDICARE, MEDICAID, SELFPAY | LOC: WDC 10:06 | PROVIDERS: ATTENDING PHYSICIAN Nurse Practitioner | DX: R92.30 Dense breasts, unspecified (principal) | CPT/HCPCS: 76641 ==

== ENCOUNTER 2024-11-13 11:00 | Emergency (ER) | payer MEDICARE, MEDICAID, SELFPAY ==
[2024-11-13 11:05] VITALS: BP 129/117
[2024-11-13 11:11] VITALS: BP 123/108
[2024-11-13 11:28] LABS: Urine Character Clear (Clear)
[2024-11-13 11:30] VITALS: BP 122/98
--- NOTE | 2024-11-13 11:40 | ED.GENMED ---
History of Present Illness
General
Chief Complaint: Urinary Symptoms
Source: patient, senior care and senior care records
Exam Limitations: non verbal-adult, altered mental status and developmental stage
Time Seen by Provider: 11/13/24 11:09
Nursing documentation reviewed up to this point in time: agreed with
History of Present Illness
History of Present Illness:
Mentally challenged female from a facility for mentally challenged people presents with decreased urination question of confusion
Apparently had urinated in the day nurse states she had a saturated brief
My evaluation patient nonverbal no acute distress was childlike
Past History
Past History
ED Past Medical History: Arrthythmia (Heart block type nonspecific), GERD, Psychiatric (depressive disorder, psychotic disorder), Other (MR, heart block) and Other (Mental disability, )
ED Past Surgical History: Other
Social History
Tobacco: Non-smoker
Alcohol: None
Drug: None
Personal: Single
Living: other (long term)
Employment: Other
Family History
Family History: Unable to obtain
Phy Exam
Physical Exam
Physical Exam:
Physical Exam
General: Special-needs female no acute distress
Neck: No tongue bite no jaundice lips are moist
Heart: s1/s2 regular rate and rhythm, no murmur. equal radial pulses.
Lungs: no acute respiratory distress. No wheezing
Abdomen: Soft nontender
Neuro: Nonverbal
Skin: no rash
Psychiatric: Unable to assess
Extremities: no edema.
Course
Orders/Labs/Results
Orders:
Orders
11/13/24 11:16
Urinalysis Reflex To Culture Urgent
Date Specimen was Collected: 11/13/24
Time Specimen was Collected: 11:15
11/13/24 11:33
Complete Blood Count/With Diff Urgent
Comprehensive Metabolic Panel Urgent
11/13/24 11:41
Add On- LAB Urgent
Tests Added?: Depakene
11/13/24 11:43
CR Chest Single View Urgent
Reason For Exam: Question confusion borderline sats
11/13/24 12:23
Depakane Routine
Abnormal Lab Results
11/13/24
11:33
RBC 3.81 L 10^6/uL
(4.20-5.40)
Hct 36.9 L %
(37.0-47.0)
MCH 33.1 H pg
(27.0-31.0)
RDW 11.3 L %
(11.5-14.5)
Absolute Monos (auto) 0.7 H 10^3/uL
(0.1-0.6)
Monocytes % 9.6 H %
(1.7-9.3)
Sodium 130 L mmol/L
(135-145)
Chloride 94 L mmol/L
(98-107)
Carbon Dioxide 33 H mmol/L
(22-30)
Glucose 110 H mg/dl
(70-99)
Total Protein 6.1 L g/dl
(6.3-8.2)
11/13/24 11:33
11/13/24 11:33
Vital Signs
Initial and Last Documented VS:
Initial Vital Signs
Temp Pulse Resp Pulse Ox
99.0 F 64 20 92
11/13/24 11:03 11/13/24 11:03 11/13/24 11:03 11/13/24 11:03
Last Documented Vital Signs
Temp Pulse Resp BP Pulse Ox
99.0 F 57 18 122/98 92
11/13/24 11:03 11/13/24 11:30 11/13/24 11:30 11/13/24 11:30 11/13/24 11:41
MDM/Problems Addressed
Differential Diagnosis Includes:
UTI dehydration viral syndrome electrolyte abnormality overmedicated
MDM/Problems Addressed:
Decreased urination
Chronic conditions affecting care: Neurological disorder
Acute Exacerbation and/or Progression of Chronic Illness: Neurological disorder
*Pulse Oximetry
SaO2: 92
Oxygen Mode of Delivery: Room air
Patient hypoxic: no
*Critical Care Note
Total Time (30-74mins, 75-104mins- exclusive of procedures): Not Applicable
Update Note
Update Note:
1:30 PM update labs chest x-ray urine noted patient appears stable
ED Attending Note
-
Portions of this chart may have been created with voice recognition software.� Occasional wrong word or��sound alike� substitutions may have occurred due to the inherent limitations of voice recognition software.
Discharge Plan
Departure
Patient Disposition: Home (Routine Discharge)
Date of Disposition: 11/13/24
Time of Disposition: 13:33
Patient with high blood pressure during this ER visit?: No
Condition: Good
Discharge Problem:
Severe intellectual disability
Instructions: Dehydration in adults - ED discharge instructions
Prescriptions:
No Action
meloxicam 7.5 mg Tablet
7.5 mg PO DAILY
lorazepam 0.5 mg Tablet
0.5 mg PO HS
divalproex 500 mg Tablet Extended Release 24 Hr
500 mg PO QPM@2000
docusate sodium [Colace] 100 mg Capsule
100 mg PO BID
omeprazole 20 mg Capsule,Delayed Release(Dr/Ec)
20 mg PO DAILY
calcium carbonate-vitamin D3 [Calcium 600 + D(3)] 600 mg-10 mcg (400 unit) Tablet
1 tab PO QPM
polyethylene glycol 3350 [Miralax] 17 gram Powder In Packet
17 g PO Q48H@1600
acetaminophen [Tylenol] 325 mg Tablet
650 mg PO Q4HPRN PRN (Reason: mild pain/fever)
metoprolol tartrate 25 mg Tablet
25 mg PO BID Qty: 60 0RF
sertraline 50 mg tablet
100 mg PO HS
dextromethorphan-guaifenesin [Robitussin-DM] 10-100 mg/5 mL Syrup
5 ml PO Q4HPRN PRN (Reason: cough)
lorazepam 0.5 mg Tablet
0.5 mg PO DAILYPRN PRN (Reason: before procedures)
GennaMD 130 mg Capsule
130 mg PO DAILY
benztropine 0.5 mg tablet
1 mg PO BID
risperidone 2 mg tablet
1 mg PO HS
Referrals:
Rina Monte CRNP [Family Provider, Internal Medicine]
Interventions
Interventions:
*Risk Screen - Suicide Last Done: 11/13/24 11:03
*General Assessment Last Done: 11/13/24 11:03
*Neglect/Abuse Screening Last Done: 11/13/24 11:03
*ED- Fall Risk Assessment Last Done: 11/13/24 11:03
ED-Female Genitourinary Assessment Last Done: 11/13/24 11:38
Discharge Date and Time
Print Language: MONTENEGRIN
[2024-11-13 11:54] LABS: Hematocrit 36.9 % (37.0-47.0); Hemoglobin 12.6 g/dL (12.0-16.0); Mean Corp Hgb Conc. 34.1 g/dL (33.0-37.0); Mean Corpuscular Volume 96.9 fL (81.0-99.0); Nucleated Red Blood Cells % 0 %; Platelet Count 178 10^3/uL (130-400); Red Cell Dist. Width 11.3 % (11.5-14.5)
[2024-11-13 12:17] LABS: ALT (SGPT) 12 U/L (0-35); AST (SGOT) 18 U/L (14-36); Albumin 3.7 g/dl (3.5-5.0); Alkaline Phosphatase 62 U/L (38-126); Blood Urea Nitrogen 17 mg/dl (7-17); Calcium 9.2 mg/dl (8.4-10.2); Carbon Dioxide 33 mmol/L (22-30); Chloride 94 mmol/L (98-107); Glucose 110 mg/dl (70-99); Potassium 4.4 mmol/L (3.5-5.1); Sodium 130 mmol/L (135-145); Total Protein 6.1 g/dl (6.3-8.2); eGFR > 60.00
[2024-11-13 13:02] LABS: Depakane 51.7 ug/ml (50.0-120.0)
[2024-11-13 14:26] VITALS: BP 118/67
== END 2024-11-13 15:19 | disposition home or self-care (01) ==
LOC: EMR 11:00
PROVIDERS: EMERGENCY PHYSICIAN Emergency Medicine; FAMILY PHYSICIAN Nurse Practitioner
DX: F72 Severe intellectual disabilities (principal); K21.9 Gastro-esophageal reflux disease without esophagitis; F32.A Depression, unspecified
CPT/HCPCS: 99283; 71045; 80053; 80164; 81003; 85025

== ENCOUNTER 2024-11-27 15:57 | Emergency (ER) | payer MEDICARE, MEDICAID, SELFPAY ==
[2024-11-27 16:01] VITALS: BP 150/79
--- NOTE | 2024-11-27 16:18 | ED.MUSCINJ ---
HPI-Injury
General
Chief Complaint: Fall
Source: patient
Time Seen by Provider: 11/27/24 16:08
History of Present Illness-Injury
Initial Injury comments:
79-year-old female presents from facility after fall out of wheelchair. She hit the right side of her head on the floor. They noted a laceration and sent her here. Patient cannot communicate.
Past History
Past History
ED Past Medical History: Arrthythmia (Heart block type nonspecific), GERD, Psychiatric (depressive disorder, psychotic disorder), Other (MR, heart block) and Other (Mental disability, )
ED Past Surgical History: Other
Social History
Tobacco: Non-smoker
Alcohol: None
Drug: None
Personal: Single
Living: other (custodial)
Employment: Other
Family History
Family History: Unable to obtain
Phy Exam
Physical Exam
Physical Exam:
General: Well-appearing female no acute respiratory distress
HEENT normocephalic 3 cm laceration right parietal scalp pupils equal round reactive to light
Neurologic exam: Alert good muscle tone
MSK: C-spine nontender no deformities to the extremities
Injury Course
Orders/Labs/Results
Orders:
Orders
11/27/24 16:17
CT Cervical Spine W/o Iv Contr Urgent
Comment:
Reason For Exam: fall
CT Head W/o Iv Contrast Urgent
Comment:
Reason For Exam: fall
MDM/Problems Addressed
Differential Diagnosis Includes:
Fall with head strike out of wheelchair. Laceration noted this was cleansed with saline anesthetized with 1% lidocaine with epinephrine and closed with [address] of the head and cervical spine ordered
*Pulse Oximetry
SaO2: 96
Oxygen Mode of Delivery: Room air
Patient hypoxic: no
*Critical Care Note
Total Time (30-74mins, 75-104mins- exclusive of procedures): Not Applicable
Update Note
Update Note:
CT of the head and cervical spine negative for acute traumatic injury. Stable for discharge back to facility
ED Attending Note
-
Portions of this chart may have been created with voice recognition software.� Occasional wrong word or��sound alike� substitutions may have occurred due to the inherent limitations of voice recognition software.
Discharge Plan
Departure
Patient Disposition: Home (Routine Discharge)
Date of Disposition: 11/27/24
Time of Disposition: 18:33
Patient with high blood pressure during this ER visit?: No
Discharge Problem:
Laceration of scalp
Instructions: Laceration Repair With [place] (DC)
Prescriptions:
No Action
meloxicam 7.5 mg Tablet
7.5 mg PO DAILY
lorazepam 0.5 mg Tablet
0.5 mg PO HS
divalproex 500 mg Tablet Extended Release 24 Hr
500 mg PO QPM@2000
docusate sodium [Colace] 100 mg Capsule
100 mg PO BID
omeprazole 20 mg Capsule,Delayed Release(Dr/Ec)
20 mg PO DAILY
calcium carbonate-vitamin D3 [Calcium 600 + D(3)] 600 mg-10 mcg (400 unit) Tablet
1 tab PO QPM
polyethylene glycol 3350 [Miralax] 17 gram Powder In Packet
17 g PO Q48H@1600
acetaminophen [Tylenol] 325 mg Tablet
650 mg PO Q4HPRN PRN (Reason: mild pain/fever)
metoprolol tartrate 25 mg Tablet
25 mg PO BID Qty: 60 0RF
sertraline 50 mg tablet
100 mg PO HS
dextromethorphan-guaifenesin [Robitussin-DM] 10-100 mg/5 mL Syrup
5 ml PO Q4HPRN PRN (Reason: cough)
lorazepam 0.5 mg Tablet
0.5 mg PO DAILYPRN PRN (Reason: before procedures)
GennaMD 130 mg Capsule
130 mg PO DAILY
benztropine 0.5 mg tablet
1 mg PO BID
risperidone 2 mg tablet
1 mg PO HS
Referrals:
Rina Monte CRNP [Family Provider, Internal Medicine]
Activity Restrictions/Additional Instructions:
Have hafsa removed in 7 to 10 days. Return if needed
Interventions
Interventions:
*Risk Screen - Suicide Last Done: 11/27/24 16:01
*General Assessment Last Done: 11/27/24 16:01
*Neglect/Abuse Screening Last Done: 11/27/24 16:01
*ED- Fall Risk Assessment Last Done: 11/27/24 16:24
*ED COVID-19 Vaccine History Last Done: 11/27/24 16:24
ED-Musculoskeletal Assessment Last Done: 11/27/24 16:24
ED- Neurological Assessment Last Done: 11/27/24 16:24
ED-Skin Assessment Last Done: 11/27/24 16:24
Discharge Date and Time
Print Language: SINHALA
[2024-11-27 18:51] VITALS: BP 135/74
== END 2024-11-27 19:46 | disposition home or self-care (01) ==
LOC: EMR 15:57
PROVIDERS: EMERGENCY PHYSICIAN Emergency Medicine; FAMILY PHYSICIAN Nurse Practitioner
DX: S01.01XA Laceration without foreign body of scalp, initial encounter (principal); W05.0XXA Fall from non-moving wheelchair, initial encounter
CPT/HCPCS: 12002; 99284; 70450; 72125

== ENCOUNTER → 2025-01-14 11:56 | Outpatient (REF) | payer MEDICARE, MEDICAID, SELFPAY | LOC: RAD 11:56 | PROVIDERS: ATTENDING PHYSICIAN Nurse Practitioner | DX: R05.1 Acute cough (principal) | CPT/HCPCS: 71045 ==

== ENCOUNTER → 2025-03-09 11:12 | Outpatient (REF) | payer MEDICARE, MEDICAID, SELFPAY ==
[2025-03-09 12:16] LABS: Urine Character Cloudy (Clear)
[2025-03-09 12:43] LABS: Urine Squamous Cell 16-20 /LPF (Few); Urine Urothelial Cell 0-2 /LPF (FEW)
[2025-03-09 12:46] LABS: Urine Red Blood Cell 16-20 /HPF (0-2); Urine White Cell 30-40 /HPF (0-5)
[2025-03-09 12:56] LABS: Depakane 41.8 ug/ml (50.0-120.0)
[2025-03-09 14:03] LABS: Folate 9.0 ng/ml (2.76-20); Vitamin B12 777 pg/ml (239-931)
[2025-03-10 14:04] LABS: Syphilis/T. pallidum Ab Reflex Negative (Negative)
[2025-03-11 07:05] LABS: Arsenic, Blood <10.0 ug/L (<=12.0); Lead - Venous <2.0 ug/dL (<=3.4); Mercury, Blood <2.5 ug/L (<=10.0)
== END ==
LOC: REG 11:12
PROVIDERS: ATTENDING PHYSICIAN Psychiatry & Neurology Neurology; FAMILY PHYSICIAN Nurse Practitioner Adult Health
DX: F29 Unspecified psychosis not due to a substance or known physiological condition (principal); Z79.899 Other long term (current) drug therapy; R41.82 Altered mental status, unspecified
CPT/HCPCS: 36415; 80164; 81003; 81015; 82175; 82607; 82746; 83655; 83825; 84155; 84165; 84425; 86618; 86780; 87077; 87086; 87186; 87389